=== PATIENT | female | born 1975 | race Two or more races ===

== ENCOUNTER 2024-01-28 16:51 | Inpatient (IN) | payer OTHER ==
[~2024-01-28] VITALS: Ht 147.3 cm; Wt 58.0 kg
[2024-01-28 18:06] LABS: BASOPHILS # (AUTO) 0.1 X10'3 (0-0.2); EOSINOPHILS # (AUTO) 0.1 X10'3 (0-0.9); EOSINOPHILS % (AUTO) 1.5 % (0-6); HEMATOCRIT 44.5 % (35.0-45.0); HEMOGLOBIN 15.2 g/dl (12.0-16.0); LYMPHOCYTES # (AUTO) 2.8 X10'3 (1.1-4.8); LYMPHOCYTES % (AUTO) 38.5 % (21-51); MEAN CORPUSCULAR HEMOGLOBIN 31.2 PG (27.0-31.0); MEAN CORPUSCULAR HGB CONC 34.2 g/dL (33.0-36.5); MEAN CORPUSCULAR VOLUME 91.4 FL (78-98); MEAN PLATELET VOLUME 9.1 FL (7.4-10.4); MONOCYTES # (AUTO) 0.5 X10'3 (0-0.9); MONOCYTES % (AUTO) 6.2 % (2-12); NEUTROPHILS # (AUTO) 3.9 X10'3 (1.8-7.7); NEUTROPHILS % (AUTO) 52.8 % (42-75); PLATELET COUNT 259 X10'3 (140-440); RED BLOOD COUNT 4.87 X10'6 (4.20-5.60); RED CELL DISTRIBUTION WIDTH 12.6 % (11.5-14.5); WHITE BLOOD COUNT 7.3 X10'3 (4.5-11.0)
[2024-01-28 18:17] LABS: APTT 26 SECONDS (22-32); PROTHROMBIN TIME 10.8 SECONDS (9.0-12.0)
[2024-01-28 18:18] LABS: HCG SERUM QL NEGATIVE
[2024-01-28 18:30] LABS: ALANINE AMINOTRANSFERASE 25 U/L (12-78); ALBUMIN 4.3 G/DL (3.4-5.0); ALKALINE PHOSPHATASE 80 IU/L (46-116); ANION GAP 9 (8-16); ASPARTATE AMINO TRANSFERASE 12 U/L (10-37); BILIRUBIN,TOTAL 0.5 MG/DL (0.1-1.0); BLOOD UREA NITROGEN 12 MG/DL (7-18); BUN/CREATININE RATIO 16.7 (10.0-20.0); CALCIUM 9.2 MG/DL (8.5-10.1); CHLORIDE 103 MMOL/L (99-107); CREATININE 0.72 MG/DL (0.40-0.90); GLUCOSE 92 MG/DL (70-104); LIPASE 82 U/L (16-77); POTASSIUM 3.6 MMOL/L (3.5-5.1); SODIUM 139 MMOL/L (135-145); TOTAL CARBON DIOXIDE 26.9 MMOL/L (24-32); TOTAL PROTEIN 8.5 G/DL (6.4-8.2); eCRCL 75 ML/MIN; eGFR 86 ML/MIN
[2024-01-28] MEDS: ketorolac tromethamine 15mg/ml inj. IV ONE (20:05)
[2024-01-28] MEDS: normal saline 1000ML IV soln IVB ONE (20:06)
[2024-01-28] MEDS: ketorolac trometh. 30mg/ml inj. IV ONE (20:06)
[2024-01-28] MEDS: CefTRIAXone 2gm/D5W 50ml BAG 50 ML IV ONE (20:21)
[2024-01-28] MEDS ORDERED: mag hydrox/Alum hydrox/simeth 30ml oral suspension PO PRN (20:55)
[2024-01-28] MEDS ORDERED: ondansetron/PF 4mg/2ml inj IV PRN (20:55)
[2024-01-28] MEDS ORDERED: ondansetron 4mg rapidly disintigrating tab PO PRN (20:55)
[2024-01-28] MEDS ORDERED: potassium Cl 40MEQ/1/2NS 520ml 520 ML IV PRN (20:55)
[2024-01-28] MEDS ORDERED: magnesium 2GM in 50ml NS 50 ML IV PRN (20:55)
[2024-01-28] MEDS ORDERED: magnesium 4gm in 100ml NS 100 ML IV PRN (20:55)
[2024-01-28] MEDS ORDERED: magnesium hydroxide 30ml (MOM) UD suspension PO PRN (20:55)
[2024-01-28] MEDS ORDERED: potassium Cl 20 mEq SR tablet PO PRN (20:55)
[2024-01-28] MEDS ORDERED: acetaminophen 325mg tablet PO PRN (20:55)
[2024-01-28] MEDS ORDERED: magnesium Cl slow-release 64mg tablet PO PRN (20:55)
[2024-01-28] MEDS ORDERED: morphine 2 MG/ML inj. syringe IV PRN (20:55)
[2024-01-28 21:02] LABS: CREATINE KINASE 61 U/L (26-192); MAGNESIUM 2.1 MG/DL (1.5-2.4); PHOSPHORUS 3.7 MG/DL (2.3-4.5); PRO BRAIN NATRIURETIC PEPTIDE 38 PG/ML (0-125); THYROID STIMULATING HORMONE 1.52 ulU/ml (0.34-4.50)
[2024-01-28] MEDS: diatr meglu/diatrizoate 30ml oral sol.-(3 dose) bottle PO SCH (21:26)
[2024-01-28 21:28] LABS: BILIRUBIN,URINE NEGATIVE (Neg); CLARITY,URINE CLEAR (Clear); COLOR,URINE YELLOW (Yellow); GLUCOSE, URINE NEGATIVE (Neg); KETONES,URINE NEGATIVE (Neg); LEUKOCYTE ESTERASE ,URINE NEGATIVE (Neg); NITRITES, URINE NEGATIVE (Neg); OCCULT BLOOD,URINE MODERATE (Neg); PROTEIN,URINE NEGATIVE (Neg); UROBILINOGEN,URINE 0.2 E.U/dL (0.2-1.0)
[2024-01-28] MEDS: normal saline 1000ml 1,000 ML IV SCH (21:32)
[2024-01-28 21:34] LABS: HEMOGLOBIN A1C 5.2 % (4.5-6.2)
[2024-01-28 21:37] LABS: UA COLLECTION TYPE CLN CATCH MIDSTREAM
[2024-01-28 21:39] LABS: MUCUS STRANDS MODERATE /LPF (Neg); SQUAMOUS EPITHELIAL CELL,UR MODERATE /LPF (FEW)
[2024-01-28 21:40] LABS: TRANSITIONAL EPI CELLS,URINE FEW /HPF; WBC,URINE 0-4 /HPF (0-4)
[2024-01-28 21:41] LABS: BACTERIA,URINE FEW /HPF (Neg)
[2024-01-29] VITALS (19 sets, daily range): BP systolic 103–153; BP diastolic 68–91; PULSE 60–77; RESP 14–21; TEMP 97.1–98; O2SAT 97–100
[2024-01-29] MEDS: piperacillin/tazo 3.375gm/50ml 50 ML IV SCH (00:39)
[2024-01-29] MEDS: morphine 2 MG/ML inj. syringe IV PRN (04:10)
[2024-01-29 07:44] LABS: BASOPHILS # (AUTO) 0.1 X10'3 (0-0.2); BASOPHILS % (AUTO) 1.1 % (0-1); EOSINOPHILS # (AUTO) 0.1 X10'3 (0-0.9); EOSINOPHILS % (AUTO) 1.7 % (0-6); HEMOGLOBIN 13.8 g/dl (12.0-16.0); LYMPHOCYTES # (AUTO) 3.4 X10'3 (1.1-4.8); LYMPHOCYTES % (AUTO) 39.4 % (21-51); MEAN CORPUSCULAR HEMOGLOBIN 31.7 PG (27.0-31.0); MEAN CORPUSCULAR HGB CONC 34.6 g/dL (33.0-36.5); MEAN CORPUSCULAR VOLUME 91.6 FL (78-98); MEAN PLATELET VOLUME 8.9 FL (7.4-10.4); MONOCYTES # (AUTO) 0.6 X10'3 (0-0.9); MONOCYTES % (AUTO) 7.3 % (2-12); NEUTROPHILS # (AUTO) 4.3 X10'3 (1.8-7.7); NEUTROPHILS % (AUTO) 50.5 % (42-75); PLATELET COUNT 225 X10'3 (140-440); RED BLOOD COUNT 4.36 X10'6 (4.20-5.60); RED CELL DISTRIBUTION WIDTH 12.5 % (11.5-14.5); WHITE BLOOD COUNT 8.6 X10'3 (4.5-11.0)
[2024-01-29] MEDS: K and/or MAG REPLACEMENT MC SCH (08:00)
[2024-01-29] MEDS: docusate sod 100mg capsule PO SCH (08:00)
[2024-01-29] MEDS ORDERED: heparin, porcine 5000 units/ml vial SQ SCH ×2 (08:00)
[2024-01-29 08:17] LABS: ALANINE AMINOTRANSFERASE 31 U/L (12-78); ALBUMIN 3.4 G/DL (3.4-5.0); ALKALINE PHOSPHATASE 68 IU/L (46-116); ANION GAP 7 (8-16); ASPARTATE AMINO TRANSFERASE 35 U/L (10-37); BILIRUBIN,TOTAL 0.5 MG/DL (0.1-1.0); BLOOD UREA NITROGEN 11 MG/DL (7-18); BUN/CREATININE RATIO 17.2 (10.0-20.0); CALCIUM 8.3 MG/DL (8.5-10.1); CHLORIDE 109 MMOL/L (99-107); CHOL/HDL RATIO 2.6 (0.00-4.99); CHOLESTEROL 148 MG/DL (0-200); CREATININE 0.64 MG/DL (0.40-0.90); GLUCOSE 92 MG/DL (70-104); HDL CHOLESTEROL 56 MG/DL (35-60); LDL CHOLESTEROL 80 MG/DL (50-100); PHOSPHORUS 3.9 MG/DL (2.3-4.5); POTASSIUM 3.7 MMOL/L (3.5-5.1); SODIUM 141 MMOL/L (135-145); TOTAL CARBON DIOXIDE 24.9 MMOL/L (24-32); TOTAL PROTEIN 6.8 G/DL (6.4-8.2); TRIGLYCERIDES 55 MG/DL (20-135); eCRCL 84 ML/MIN; eGFR > 90 ML/MIN
[2024-01-29] MEDS ORDERED: iohexol 300mg/ml 100ml inj. ONE (08:27)
[2024-01-29] MEDS: pantoprazole 40 MG vial IV SCH (09:03)
[2024-01-29] MEDS ORDERED: NO HOME MEDS (09:46)
[2024-01-29] MEDS ORDERED: labetalol 20mg/4ml (5mg/ml) syringe IV PRN (16:55)
[2024-01-29] MEDS ORDERED: ondansetron/PF 4mg/2ml inj IV PRN ×2 (16:55→19:05)
[2024-01-29] MEDS ORDERED: morphine 2 MG/ML inj. syringe IV PRN (16:55)
[2024-01-29] MEDS ORDERED: meperidine/PF 25mg/ml syringe IV PRN ×2 (16:55)
[2024-01-29] MEDS ORDERED: proCHLORperazine 10 MG/2 ml inj IV PRN (16:55)
[2024-01-29] MEDS ORDERED: morphine 4 MG/ML inj SYRINge IV PRN (16:55)
[2024-01-29] MEDS ORDERED: midazolam 1 mg/ML 2ml injection ONE (17:42)
[2024-01-29] MEDS ORDERED: sevoflurane 250ml liquid IH ONE (17:42)
[2024-01-29] MEDS ORDERED: fentaNYL/PF 50MCG/1 ML 2ML syringe ONE (17:42)
[2024-01-29] MEDS ORDERED: propofol inj 20 ML IV ONE (17:42)
[2024-01-29] MEDS: BUPIVAcaine 2.5mg/ml inj 50ml vial (contains preservative) SQ ONE (18:22)
[2024-01-29] MEDS ORDERED: rocuronium 10mg/ml inj IV ONE (18:46)
[2024-01-29] MEDS ORDERED: ondansetron/PF 4mg/2ml inj ONE (18:46)
[2024-01-29] MEDS ORDERED: dexamethasone sod phosphate 4mg/ml inj. ONE (18:46)
[2024-01-29] MEDS ORDERED: acetaminophen 1,000mg/100ml IV 100 ML IV ONE (18:47)
[2024-01-29] MEDS ORDERED: sugammadex 200mg/2ml injection IV ONE (19:01)
[2024-01-29] MEDS ORDERED: naloxone 0.4 mg/ml inj IV PRN (19:05)
[2024-01-29] MEDS: ringers solution, lacted 1,000 ML IV SCH (19:34)
[2024-01-29] MEDS: meperidine/PF 25mg/ml syringe IV PRN (19:34)
[2024-01-29] MEDS: BUPIVAcaine 2.5mg/ml inj 50ml vial (contains preservative) ONE (19:41)
[2024-01-29] MEDS ORDERED: HYDROmorphone inj. 0.5 MG/0.5 ML DISP.SYRIN IV PRN (21:15)
[2024-01-29] MEDS: metoclopramide 5 mg/ml inj IV PRN (21:28)
[2024-01-29] MEDS: ketorolac trometh. 30mg/ml inj. IV SCH (21:37)
[2024-01-30] VITALS (7 sets, daily range): BP systolic 128–147; BP diastolic 75–89; PULSE 73–82; RESP 14–18; TEMP 97.5–98; O2SAT 95–99
[2024-01-30] MEDS ORDERED: ketorolac trometh. 30mg/ml inj. IV SCH (02:00)
[2024-01-30] MEDS: ketorolac trometh. 30mg/ml inj. IV PRN (03:10)
[2024-01-30] MEDS: HYDROcodone/acetaminophen 5mg/325mg tablet PO PRN (03:10)
[2024-01-30 06:48] LABS: BASOPHILS % (AUTO) 0.2 % (0-1); EOSINOPHILS % (AUTO) 0 % (0-6); HEMATOCRIT 40.9 % (35.0-45.0); HEMOGLOBIN 13.8 g/dl (12.0-16.0); LYMPHOCYTES # (AUTO) 1.3 X10'3 (1.1-4.8); LYMPHOCYTES % (AUTO) 15.7 % (21-51); MEAN CORPUSCULAR HGB CONC 33.8 g/dL (33.0-36.5); MEAN CORPUSCULAR VOLUME 91.6 FL (78-98); MEAN PLATELET VOLUME 9.6 FL (7.4-10.4); MONOCYTES # (AUTO) 0.2 X10'3 (0-0.9); MONOCYTES % (AUTO) 2.2 % (2-12); NEUTROPHILS # (AUTO) 6.8 X10'3 (1.8-7.7); NEUTROPHILS % (AUTO) 81.9 % (42-75); PLATELET COUNT 248 X10'3 (140-440); RED BLOOD COUNT 4.47 X10'6 (4.20-5.60); RED CELL DISTRIBUTION WIDTH 12.8 % (11.5-14.5); WHITE BLOOD COUNT 8.3 X10'3 (4.5-11.0)
[2024-01-30 07:02] LABS: ALANINE AMINOTRANSFERASE 161 U/L (12-78); ALBUMIN 3.6 G/DL (3.4-5.0); ALBUMIN/GLOBULIN RATIO 0.9 (1.1-1.5); ALKALINE PHOSPHATASE 81 IU/L (46-116); ANION GAP 13 (8-16); ASPARTATE AMINO TRANSFERASE 155 U/L (10-37); BILIRUBIN,TOTAL 0.8 MG/DL (0.1-1.0); BLOOD UREA NITROGEN 6 MG/DL (7-18); BUN/CREATININE RATIO 10.7 (10.0-20.0); CALCIUM 8.8 MG/DL (8.5-10.1); CHLORIDE 103 MMOL/L (99-107); CREATININE 0.56 MG/DL (0.40-0.90); GLUCOSE 121 MG/DL (70-104); MAGNESIUM 1.8 MG/DL (1.5-2.4); PHOSPHORUS 4.1 MG/DL (2.3-4.5); POTASSIUM 3.4 MMOL/L (3.5-5.1); SODIUM 139 MMOL/L (135-145); TOTAL CARBON DIOXIDE 23.2 MMOL/L (24-32); TOTAL PROTEIN 7.4 G/DL (6.4-8.2); eCRCL 78 ML/MIN; eGFR > 90 ML/MIN
[2024-01-30] MEDS: potassium Cl 20 mEq SR tablet PO PRN (16:14)
[2024-01-31 05:55] LABS: BASOPHILS % (AUTO) 0.5 % (0-1); EOSINOPHILS # (AUTO) 0.1 X10'3 (0-0.9); EOSINOPHILS % (AUTO) 0.6 % (0-6); HEMATOCRIT 35.5 % (35.0-45.0); HEMOGLOBIN 12.2 g/dl (12.0-16.0); LYMPHOCYTES # (AUTO) 3.7 X10'3 (1.1-4.8); LYMPHOCYTES % (AUTO) 39.9 % (21-51); MEAN CORPUSCULAR HEMOGLOBIN 31.9 PG (27.0-31.0); MEAN CORPUSCULAR HGB CONC 34.4 g/dL (33.0-36.5); MEAN CORPUSCULAR VOLUME 92.7 FL (78-98); MEAN PLATELET VOLUME 9.5 FL (7.4-10.4); MONOCYTES # (AUTO) 0.7 X10'3 (0-0.9); NEUTROPHILS # (AUTO) 4.9 X10'3 (1.8-7.7); PLATELET COUNT 212 X10'3 (140-440); RED BLOOD COUNT 3.83 X10'6 (4.20-5.60); WHITE BLOOD COUNT 9.4 X10'3 (4.5-11.0)
[2024-01-31 06:05] LABS: ALANINE AMINOTRANSFERASE 128 U/L (12-78); ALBUMIN 3.1 G/DL (3.4-5.0); ALKALINE PHOSPHATASE 64 IU/L (46-116); ANION GAP 9 (8-16); ASPARTATE AMINO TRANSFERASE 80 U/L (10-37); BILIRUBIN,TOTAL 0.6 MG/DL (0.1-1.0); BLOOD UREA NITROGEN 14 MG/DL (7-18); BUN/CREATININE RATIO 20.6 (10.0-20.0); CALCIUM 8.2 MG/DL (8.5-10.1); CHLORIDE 110 MMOL/L (99-107); CREATININE 0.68 MG/DL (0.40-0.90); GLUCOSE 95 MG/DL (70-104); PHOSPHORUS 2.1 MG/DL (2.3-4.5); POTASSIUM 3.6 MMOL/L (3.5-5.1); SODIUM 144 MMOL/L (135-145); TOTAL CARBON DIOXIDE 25.2 MMOL/L (24-32); TOTAL PROTEIN 6.3 G/DL (6.4-8.2); eCRCL 65 ML/MIN; eGFR > 90 ML/MIN
[2024-01-31 07:39] VITALS: BP 123/76; PULSE 78; RESP 16; TEMP 97.5; O2SAT 97
[2024-01-31 08:06] VITALS: RESP 16
[2024-01-31 10:00] VITALS: BP 133/76; PULSE 80; RESP 16; TEMP 97.3; O2SAT 100
[2024-01-31] MEDS ORDERED: DOCU100C40 PO (12:23)
[2024-01-31 13:29] VITALS: RESP 16
[2024-01-31] MEDS ORDERED: ACET-1008 PO (14:29)
[2024-01-31] MEDS ORDERED: IBUP-1985 PO (14:32)
== END 2024-01-31 14:10 | disposition home or self-care (01) | DRG 419 ==
LOC: ER 16:52 → ED HOLD 20:54 → SUR 3N 01-29 15:36
PROVIDERS: ADMIT Family Medicine; ATTEND Internal Medicine
PROC: 8E0W4CZ Robotic Assisted Procedure of Trunk Region, Percutaneous Endoscopic Approach (ICD-10-PCS; 2024-01-29)
PROC: BW211ZZ Computerized Tomography (CT Scan) of Abdomen and Pelvis using Low Osmolar Contrast (ICD-10-PCS; 2024-01-29)
PROC: 0FT44ZZ Resection of Gallbladder, Percutaneous Endoscopic Approach (ICD-10-PCS; principal; 2024-01-29 17:42)
DX: K80.00 Calculus of gallbladder with acute cholecystitis without obstruction (principal); I10 Essential (primary) hypertension; Z86.16 Personal history of COVID-19; Z88.1 Allergy status to other antibiotic agents; Z83.79 Family history of other diseases of the digestive system
CPT/HCPCS: 99285; Z7506; Z7508; 36415; 71045; 74177; 76700; 80053; 80061; 81001; 82550; 82948; 83036; 83605; 83690; 83735; 83880; 84100; 84443; 84703; 85025; 85610; 85730; 87040; 87081; 93005; 97116; 97161; 97530; A4215; A4618; A7000; C9113; G0378; J0131; J0696; J1100; J1885; J2175; J2250; J2270; J2405; J2543; J2704; J2765; J3010; J3490; J7030; J7120; Q9963; Q9967

== ENCOUNTER 2024-02-14 23:07 | Inpatient (IN) | payer OTHER ==
[~2024-02-14] VITALS: Ht 144.8 cm; Wt 62.3 kg
[~2024-02-14 23:07] MED LIST: ACET-1008 PO; DOCU100C40 PO; IBUP-1985 PO
[2024-02-15 00:29] LABS: BASOPHILS # (AUTO) 0.1 X10'3 (0-0.2); BASOPHILS % (AUTO) 1.1 % (0-1); EOSINOPHILS # (AUTO) 0.2 X10'3 (0-0.9); EOSINOPHILS % (AUTO) 2.3 % (0-6); HEMATOCRIT 39.9 % (35.0-45.0); HEMOGLOBIN 13.8 g/dl (12.0-16.0); LYMPHOCYTES # (AUTO) 3.7 X10'3 (1.1-4.8); LYMPHOCYTES % (AUTO) 45.8 % (21-51); MEAN CORPUSCULAR HEMOGLOBIN 31.4 PG (27.0-31.0); MEAN CORPUSCULAR HGB CONC 34.5 g/dL (33.0-36.5); MEAN CORPUSCULAR VOLUME 91.3 FL (78-98); MEAN PLATELET VOLUME 8.7 FL (7.4-10.4); MONOCYTES # (AUTO) 0.5 X10'3 (0-0.9); MONOCYTES % (AUTO) 6.7 % (2-12); NEUTROPHILS # (AUTO) 3.5 X10'3 (1.8-7.7); NEUTROPHILS % (AUTO) 44.1 % (42-75); PLATELET COUNT 295 X10'3 (140-440); RED BLOOD COUNT 4.38 X10'6 (4.20-5.60); RED CELL DISTRIBUTION WIDTH 12.7 % (11.5-14.5)
[2024-02-15 00:46] LABS: ALANINE AMINOTRANSFERASE 33 U/L (12-78); ALBUMIN 3.8 G/DL (3.4-5.0); ALKALINE PHOSPHATASE 102 IU/L (46-116); ANION GAP 9 (8-16); ASPARTATE AMINO TRANSFERASE 13 U/L (10-37); BILIRUBIN,TOTAL 0.3 MG/DL (0.1-1.0); BLOOD UREA NITROGEN 15 MG/DL (7-18); BUN/CREATININE RATIO 20.5 (10.0-20.0); CALCIUM 9.1 MG/DL (8.5-10.1); CHLORIDE 105 MMOL/L (99-107); CREATININE 0.73 MG/DL (0.40-0.90); GLUCOSE 125 MG/DL (70-104); LIPASE 104 U/L (16-77); POTASSIUM 3.1 MMOL/L (3.5-5.1); SODIUM 141 MMOL/L (135-145); TOTAL CARBON DIOXIDE 26.6 MMOL/L (24-32); TOTAL PROTEIN 7.8 G/DL (6.4-8.2); eCRCL 67 ML/MIN; eGFR 85 ML/MIN
[2024-02-15] MEDS: ibuprofen 200mg tablet PO ONE (02:21)
[2024-02-15 03:06] LABS: BILIRUBIN,URINE NEGATIVE (Neg); CLARITY,URINE SLIGHTLY CLOUDY (Clear); COLOR,URINE STRAW (Yellow); GLUCOSE, URINE NEGATIVE (Neg); KETONES,URINE NEGATIVE (Neg); LEUKOCYTE ESTERASE ,URINE TRACE (Neg); NITRITES, URINE NEGATIVE (Neg); OCCULT BLOOD,URINE SMALL (Neg); PH,URINE 5.5 (4.8-8.0); PROTEIN,URINE NEGATIVE (Neg); UROBILINOGEN,URINE 0.2 E.U/dL (0.2-1.0)
[2024-02-15] MEDS ORDERED: magnesium 2GM in 50ml NS 50 ML IV PRN (03:10)
[2024-02-15] MEDS ORDERED: magnesium 4gm in 100ml NS 100 ML IV PRN (03:10)
[2024-02-15] MEDS ORDERED: ondansetron/PF 4mg/2ml inj IV PRN (03:10)
[2024-02-15] MEDS ORDERED: acetaminophen 325mg tablet PO PRN (03:10)
[2024-02-15] MEDS ORDERED: morphine 2 MG/ML inj. syringe IV PRN ×2 (03:10)
[2024-02-15] MEDS ORDERED: magnesium Cl slow-release 64mg tablet PO PRN (03:10)
[2024-02-15] MEDS ORDERED: potassium Cl 20 mEq SR tablet PO PRN ×2 (03:10)
[2024-02-15 03:12] LABS: UA COLLECTION TYPE NON-SPECIFIED
[2024-02-15 03:13] LABS: MUCUS STRANDS MANY /LPF (Neg); SQUAMOUS EPITHELIAL CELL,UR MANY /LPF (FEW)
[2024-02-15 03:14] LABS: WBC,URINE 30-50 /HPF (0-4)
[2024-02-15 03:15] LABS: BACTERIA,URINE 3+ /HPF (Neg)
[2024-02-15 03:16] LABS: WBC CLUMPS,URINE FEW /HPF (NEGATIVE)
[2024-02-15] MEDS: normal saline 1000ml 1,000 ML IV SCH (03:51)
[2024-02-15 07:45] VITALS: BP 120/77; PULSE 70; RESP 15; TEMP 97.4; O2SAT 97
[2024-02-15 08:00] VITALS: RESP 16; O2SAT 98
[2024-02-15] MEDS: potassium Cl 40MEQ/1/2NS 520ml 520 ML IV PRN (08:26)
[2024-02-15] MEDS: K and/or MAG REPLACEMENT MC SCH (08:28)
[2024-02-15 10:00] VITALS: BP 127/78; PULSE 55; RESP 15; TEMP 96.9; O2SAT 99
[2024-02-15] MEDS ORDERED: CEPH-585 PO (13:08)
== END 2024-02-15 16:20 | disposition home or self-care (01) | DRG 603 ==
LOC: ER 23:07 → ED HOLD 02-15 03:18 → EDBEDREQ 02-15 06:37 → SUR 3N 02-15 07:42
PROVIDERS: ADMIT Internal Medicine Pulmonary Disease; ATTEND Internal Medicine
DX: L03.311 Cellulitis of abdominal wall (principal); G89.18 Other acute postprocedural pain; R74.8 Abnormal levels of other serum enzymes; E87.6 Hypokalemia; Z90.49 Acquired absence of other specified parts of digestive tract; Z88.1 Allergy status to other antibiotic agents; Z79.899 Other long term (current) drug therapy
CPT/HCPCS: 36415; 74150; 74181; 80053; 81001; 83690; 85025; 87081; 99285; G0378; J3480; J7030

== ENCOUNTER 2024-03-12 00:59 | Emergency (ER) | payer OTHER ==
[~2024-03-12] VITALS: Ht 144.8 cm; Wt 59.1 kg
[~2024-03-12 00:59] MED LIST changes: +CEPH-585 PO; -DOCU100C40 PO
[2024-03-12] MEDS: normal saline 1000ml 1,000 ML IV ONE (02:01)
[2024-03-12] MEDS: ketorolac trometh. 30mg/ml inj. IV ONE (02:01)
[2024-03-12] MEDS: CefTRIAXone 2gm/D5W 50ml BAG 50 ML IV ONE (02:01)
[2024-03-12 02:09] LABS: BILIRUBIN,URINE NEGATIVE (Neg); CLARITY,URINE CLOUDY (Clear); COLOR,URINE YELLOW (Yellow); GLUCOSE, URINE NEGATIVE (Neg); KETONES,URINE NEGATIVE (Neg); LEUKOCYTE ESTERASE ,URINE LARGE (Neg); NITRITES, URINE POSITIVE (Neg); OCCULT BLOOD,URINE LARGE (Neg); PROTEIN,URINE 100 mg/dl (Neg); UROBILINOGEN,URINE 0.2 E.U/dL (0.2-1.0)
[2024-03-12 02:10] LABS: URINE HCG NEGATIVE (NEG)
[2024-03-12] MEDS: ondansetron/PF 4mg/2ml inj IV STA (02:17)
[2024-03-12 02:18] LABS: UA COLLECTION TYPE CLN CATCH MIDSTREAM
[2024-03-12 02:19] LABS: RBC,URINE TNTC /HPF (0-2); WBC,URINE TNTC /HPF (0-4)
[2024-03-12 02:20] LABS: BASOPHILS % (AUTO) 0.3 % (0-1); EOSINOPHILS # (AUTO) 0.1 X10'3 (0-0.9); EOSINOPHILS % (AUTO) 0.8 % (0-6); HEMOGLOBIN 13.8 g/dl (12.0-16.0); LYMPHOCYTES # (AUTO) 2.7 X10'3 (1.1-4.8); LYMPHOCYTES % (AUTO) 19.8 % (21-51); MEAN CORPUSCULAR HEMOGLOBIN 30.6 PG (27.0-31.0); MEAN CORPUSCULAR HGB CONC 33.5 g/dL (33.0-36.5); MEAN CORPUSCULAR VOLUME 91.4 FL (78-98); MEAN PLATELET VOLUME 9.8 FL (7.4-10.4); MONOCYTES # (AUTO) 1.2 X10'3 (0-0.9); MONOCYTES % (AUTO) 8.9 % (2-12); NEUTROPHILS # (AUTO) 9.4 X10'3 (1.8-7.7); NEUTROPHILS % (AUTO) 70.2 % (42-75); PLATELET COUNT 252 X10'3 (140-440); RED BLOOD COUNT 4.49 X10'6 (4.20-5.60); RED CELL DISTRIBUTION WIDTH 12.5 % (11.5-14.5); WHITE BLOOD COUNT 13.4 X10'3 (4.5-11.0)
[2024-03-12 02:21] LABS: BACTERIA,URINE 4+ /HPF (Neg); RENAL CELLS, URINE FEW /HPF; SQUAMOUS EPITHELIAL CELL,UR FEW /LPF (FEW); TRANSITIONAL EPI CELLS,URINE FEW /HPF
[2024-03-12 02:22] LABS: WBC CLUMPS,URINE MODERATE /HPF (NEGATIVE)
[2024-03-12 02:29] LABS: ALANINE AMINOTRANSFERASE 78 U/L (12-78); ALBUMIN 3.9 G/DL (3.4-5.0); ALBUMIN/GLOBULIN RATIO 0.9 (1.1-1.5); ALKALINE PHOSPHATASE 129 IU/L (46-116); ANION GAP 10 (8-16); BILIRUBIN,TOTAL 1.1 MG/DL (0.1-1.0); BLOOD UREA NITROGEN 11 MG/DL (7-18); BUN/CREATININE RATIO 15.3 (10.0-20.0); CALCIUM 9.1 MG/DL (8.5-10.1); CHLORIDE 103 MMOL/L (99-107); CREATININE 0.72 MG/DL (0.40-0.90); GLUCOSE 112 MG/DL (70-104); LIPASE 76 U/L (16-77); MAGNESIUM 1.7 MG/DL (1.5-2.4); SODIUM 137 MMOL/L (135-145); TOTAL CARBON DIOXIDE 23.8 MMOL/L (24-32); TOTAL PROTEIN 8.3 G/DL (6.4-8.2); eCRCL 58 ML/MIN; eGFR 86 ML/MIN
[2024-03-12 02:30] LABS: ASPARTATE AMINO TRANSFERASE 94 U/L (10-37); POTASSIUM 4.1 MMOL/L (3.5-5.1)
[2024-03-12] MEDS ORDERED: CEPH-585 PO (02:40)
[2024-03-12 02:50] VITALS: BP 124/83; PULSE 90; RESP 16; TEMP 99.1; O2SAT 99
== END 2024-03-12 03:07 | disposition home or self-care (01) ==
LOC: ER 01:00
DX: N12 Tubulo-interstitial nephritis, not specified as acute or chronic (principal); Z79.2 Long term (current) use of antibiotics; Z98.890 Other specified postprocedural states; Z91.041 Radiographic dye allergy status; Z79.1 Long term (current) use of non-steroidal anti-inflammatories (NSAID); Z90.49 Acquired absence of other specified parts of digestive tract
CPT/HCPCS: 36415; 80053; 81001; 81025; 83605; 83690; 83735; 84145; 85025; 87040; 87077; 87088; 87186; 96365; 96375; 99284; J0696; J1885; J2405; J7030

== ENCOUNTER 2024-03-23 22:34 | Emergency (ER) | payer OTHER ==
[~2024-03-23] VITALS: Ht 144.8 cm; Wt 59.1 kg
[2024-03-23 22:39] VITALS: BP 138/84; PULSE 72; RESP 17; TEMP 98.5; O2SAT 100
[2024-03-23 23:20] LABS: BILIRUBIN,URINE NEGATIVE (Neg); CLARITY,URINE SLIGHTLY CLOUDY (Clear); COLOR,URINE YELLOW (Yellow); GLUCOSE, URINE NEGATIVE (Neg); KETONES,URINE NEGATIVE (Neg); LEUKOCYTE ESTERASE ,URINE NEGATIVE (Neg); NITRITES, URINE NEGATIVE (Neg); OCCULT BLOOD,URINE SMALL (Neg); PH,URINE 6.5 (4.8-8.0); PROTEIN,URINE NEGATIVE (Neg); UROBILINOGEN,URINE 0.2 E.U/dL (0.2-1.0)
[2024-03-23 23:21] LABS: URINE HCG NEGATIVE (NEG)
[2024-03-23 23:22] LABS: UA COLLECTION TYPE CLN CATCH MIDSTREAM
[2024-03-23 23:54] LABS: SQUAMOUS EPITHELIAL CELL,UR MANY /LPF (FEW)
[2024-03-23 23:55] LABS: BACTERIA,URINE FEW /HPF (Neg); MUCUS STRANDS FEW /LPF (Neg); WBC,URINE 0-4 /HPF (0-4)
[2024-03-23 23:56] LABS: TRANSITIONAL EPI CELLS,URINE FEW /HPF
== END 2024-03-24 00:03 | disposition home or self-care (01) ==
LOC: ER 22:34
DX: M54.50 Low back pain, unspecified (principal); Z91.041 Radiographic dye allergy status; Z79.2 Long term (current) use of antibiotics; Z79.1 Long term (current) use of non-steroidal anti-inflammatories (NSAID)
CPT/HCPCS: 81001; 81025; 99283